=== PATIENT | female | born 1970 | race Caucasian/White ===

== ENCOUNTER 2019-05-29 06:47 | Day surgery (SDC) | payer OTHER, MEDICAID ==
[2019-05-28 12:26] LABS: CHLORIDE,CL 107 mmol/L (98-107); SODIUM,NA 143 mmol/L (136-145)
[~2019-05-29 06:47] MED LIST: Lactated Ringers 1,000 ML IV SCH; Sodium Chloride 0.9% 10 ML SDV IV PRN; Sodium Chloride 0.9% 10 ML Syringe FLUSH PRN; Sodium Chloride 0.9% 2.5 ML Syringe FLUSH PRN; ceFAZolin 2 GM in Premix Bag 1 BAG IV ONE
[2019-05-29] MEDS ORDERED: Lidocaine 2% 5 ML SDV ONE (08:23)
[2019-05-29] MEDS ORDERED: Propofol 200 MG/20 ML SDV ONE (08:23)
[2019-05-29] MEDS ORDERED: Midazolam 1 MG/ML 2 ML SDV ONE (08:23)
[2019-05-29] MEDS ORDERED: Glycopyrrolate 0.2 MG/ML SDV ONE (08:23)
[2019-05-29] MEDS ORDERED: Neostigmine Methylsulfate 1 MG/ML 5 ML Syringe ONE (08:23)
[2019-05-29] MEDS ORDERED: Ondansetron 4 MG/2 ML SDV ONE (08:23)
[2019-05-29] MEDS ORDERED: fentaNYL 250 MCG/5 ML SDV ONE (08:23)
[2019-05-29] MEDS ORDERED: Sodium Chloride 0.9% 20 ML ONE (08:25)
[2019-05-29] MEDS ORDERED: ceFAZolin 1 GM Vial ONE (08:25)
[2019-05-29] MEDS ORDERED: fentaNYL 100 MCG/2 ML SDV ONE ×2 (08:29→09:48)
[2019-05-29] MEDS ORDERED: Scopolamine 1.5 MG Transdermal Patch TRDERM PRN (08:56)
[2019-05-29] MEDS ORDERED: Scopolamine 1.5 MG Transdermal Patch ONE (08:58)
[2019-05-29] MEDS ORDERED: Rocuronium 100 MG/10 ML Syringe ONE (08:59)
--- NOTE | 2019-05-29 08:59 | PCM.PREANE ---
Preanesthetic Assessment - Anesthesia/Transfusion/Family Hx Anesthesia History: Prior Anesthesia Without Reaction Family History of Anesthesia Reaction: No Transfusion History: No Prior Transfusion(s) Intubation History: Unknown - Review of Systems General: No Symptoms Pulmonary: No Symptoms Cardiovascular: No Symptoms Gastrointestinal: No Symptoms Neurological: No Symptoms Other: Reports: None - Physical Assessment NPO Status Date: 05/28/19 NPO Status Time: 11:59 O2 Sat by Pulse Oximetry: 97 Respiratory Rate: 20 Vital Signs: Last Vital Signs Temp 36.3 C 05/29/19 07:30 Pulse 77 05/29/19 07:30 Resp 20 05/29/19 07:30 BP 125/61 05/29/19 07:30 Pulse Ox 97 05/29/19 07:30 Height: 5 ft 1 in Weight: 82.1 kg ASA Class: 2 Mental Status: Alert & Oriented x3 Airway Class: Mallampati = 2 Dentition: Reports: Normal Dentition, [place](s) (lower left- multiple) Thyro-Mental Finger Breadths: 3 Mouth Opening Finger Breadths: 2 ROM/Head Extension: Full Lungs: Clear to Auscultation, Normal Respiratory Effort Cardiovascular: Regular Rate, Regular Rhythm - Lab Values: Laboratory Last Values WBC 7.81 K/uL (4.0-11.0) 05/28/19 10:29 RBC 4.28 M/uL (4.30-5.90) L 05/28/19 10:29 Hgb 13.6 g/dL (12.0-16.0) 05/28/19 10:29 Hct 41.3 % (36.0-46.0) 05/28/19 10:29 MCV 96.5 fL (80.0-98.0) 05/28/19 10:29 MCH 31.8 pg (27.0-32.0) 05/28/19 10:29 MCHC 32.9 g/dL (31.0-37.0) 05/28/19 10:29 RDW Std Deviation 46.3 fl (28.0-62.0) 05/28/19 10:29 RDW Coeff of Gregorio 13 % (11.0-15.0) 05/28/19 10:29 Plt Count 265 K/uL (150-400) 05/28/19 10:29 MPV 10.00 fL (7.40-12.00) 05/28/19 10:29 Nucleated RBC % 0.0 /100WBC 05/28/19 10:29 Nucleated RBCs # 0 K/uL 05/28/19 10:29 Sodium 143 mmol/L (136-145) 05/28/19 10:23 Potassium 4.1 mmol/L (3.5-5.1) 05/28/19 10:23 Chloride 107 mmol/L (98-107) 05/28/19 10:23 Carbon Dioxide 25.8 mmol/L (21.0-32.0) 05/28/19 10:23 BUN 14 mg/dL (7.0-18.0) 05/28/19 10:23 Creatinine 0.6 mg/dL (0.6-1.0) 05/28/19 10:23 Est Cr Clr Drug Dosing 84.65 mL/min 05/28/19 10:23 Estimated GFR (MDRD) > 60.0 ml/min 05/28/19 10:23 Glucose 90 mg/dL (74-106) 05/28/19 10:23 Calcium 8.8 mg/dL (8.5-10.1) 05/28/19 10:23 HCG, Qual NEGATIVE (NEG) 05/28/19 10:29 Blood Type O POSITIVE 05/28/19 10:29 Antibody Screen NEGATIVE 05/28/19 10:29 - Allergies Allergies/Adverse Reactions: Allergies Allergy/AdvReac Type Severity Reaction Status Date / Time No Known Allergies Allergy Verified 05/22/19 08:20 - Blood Blood Available: No - Anesthesia Plan Pre-Op Medication Ordered: None - Acknowledgements Anesthesia Type Planned: General Anesthesia Pt an Appropriate Candidate for the Planned Anesthesia: Yes Alternatives and Risks of Anesthesia Discussed w Pt/Guardian: Yes Pt/Guardian Understands and Agrees with Anesthesia Plan: Yes PreAnesthesia Questionnaire HEENT History: Reports: Other (See Below) Other HEENT History: wears glasses Cardiovascular History: Reports: None Respiratory History: Reports: None Gastrointestinal History: Reports: Other (See Below) Other Gastrointestinal History: occasional heartburn Genitourinary History: Reports: None 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: Reports: , Other (See Below) Other OB/BYN History: cervical polyp Musculoskeletal History: Reports: None Neurological History: Reports: None Psychiatric History: Reports: Anxiety Endocrine/Metabolic History: Reports: Obesity/BMI 30+ Hematologic History: Reports: None Immunologic History: Reports: None Oncologic (Cancer) History: Reports: None Dermatologic History: Reports: Other (See Below) (left breast mass) - Past Surgical History Head Surgeries/Procedures: Reports: None HEENT Surgical History: Reports: None Cardiovascular Surgical History: Reports: None Respiratory Surgical History: Reports: None GI Surgical History: Reports: None Female Surgical History: Reports: Dilitation & Evacuation Endocrine Surgical History: Reports: None Neurological Surgical History: Reports: None Musculoskeletal Surgical History: Reports: None Oncologic Surgical History: Reports: None Dermatological Surgical History: Reports: None - SUBSTANCE USE Smoking Status *Q: Current Every Day Smoker (1-2 ppd) Tobacco Use Within Last Twelve Months: Cigarettes - HOME MEDS Home Medications: Home Meds . [No Known Home Meds] 05/22/19 [History] - CURRENT (IN HOUSE) MEDS Current Meds: Current Medications Lactated Ringer's (Ringers, Lactated) 1,000 mls @ 125 mls/hr IV ASDIRECTED FERMÍN Last Admin: 05/29/19 07:45 Dose: 125 mls/hr Sodium Chloride (Saline Flush) 10 ml FLUSH ASDIRECTED PRN PRN Reason: Keep Vein Open Sodium Chloride (Saline Flush) 2.5 ml FLUSH ASDIRECTED PRN PRN Reason: Keep Vein Open Sodium Chloride (Normal Saline) 10 ml IV ASDIRECTED PRN PRN Reason: IV Use Discontinued Medications Cefazolin Sodium (Ancef) Confirm Administered Dose 2 gm .ROUTE .STK-MED ONE Stop: 05/29/19 08:26 Fentanyl (Sublimaze) Confirm Administered Dose 250 mcg .ROUTE .STK-MED ONE Stop: 05/29/19 08:24 Fentanyl (Sublimaze) Confirm Administered Dose 100 mcg .ROUTE .STK-MED ONE Stop: 05/29/19 08:30 Glycopyrrolate (Robinul) Confirm Administered Dose 0.4 mg .ROUTE .STK-MED ONE Stop: 05/29/19 08:24 Cefazolin Sodium/Dextrose 2 gm (/ Premix) 50 mls @ 100 mls/hr IV ONETIME ONE Stop: 05/28/19 10:23 Sodium Chloride (Normal Saline) Confirm Administered Dose 20 mls @ as directed .ROUTE .STK-MED ONE Stop: 05/29/19 08:26 Lidocaine (Xylocaine-Mpf 2%) Confirm Administered Dose 5 ml .ROUTE .STK-MED ONE Stop: 05/29/19 08:24 Midazolam HCl (Versed 1 Mg/Ml) Confirm Administered Dose 2 mg .ROUTE .STK-MED ONE Stop: 05/29/19 08:24 Neostigmine Methylsulfate (Neostigmine) Confirm Administered Dose 5 mg .ROUTE .STK-MED ONE Stop: 05/29/19 08:24 Ondansetron HCl (Zofran) Confirm Administered Dose 4 mg .ROUTE .STK-MED ONE Stop: 05/29/19 08:24 Propofol (Diprivan 20 Ml) Confirm Administered Dose 200 mg .ROUTE .STK-MED ONE Stop: 05/29/19 08:24
[2019-05-29] MEDS ORDERED: Phenylephrine/Normal Saline 100 MCG/ML 10 ML Syringe ONE (09:30)
[2019-05-29] MEDS ORDERED: Furosemide 40 MG/4 ML VIAL ONE (09:41)
[2019-05-29] MEDS ORDERED: Fluorescein 5 ML Vial ONE (09:42)
[2019-05-29] MEDS ORDERED: HYDROmorphone 2 MG/ML Syringe ONE (09:44)
[2019-05-29] MEDS ORDERED: Atropine 0.1 MG/ML 10 ML Syringe IVPUSH PRN ×2 (09:59)
[2019-05-29] MEDS ORDERED: fentaNYL 100 MCG/2 ML SDV IVPUSH PRN (09:59)
[2019-05-29] MEDS ORDERED: 50% Dextrose in Water 50 ML Syringe IVPUSH PRN (09:59)
[2019-05-29] MEDS ORDERED: Naloxone 0.4 MG/ML Syringe IVPUSH PRN (09:59)
[2019-05-29] MEDS ORDERED: Albuterol 0.083% 2.5 MG/3 ML Neb Soln NEB PRN (09:59)
[2019-05-29] MEDS ORDERED: EPINEPHrine 1:10,000 1 MG/10 ML Syringe IVPUSH PRN (09:59)
[2019-05-29] MEDS ORDERED: Morphine 4 MG/ML Syringe IVPUSH PRN (10:16)
[2019-05-29] MEDS ORDERED: Promethazine 25 MG/ML SDV IM PRN (10:16)
[2019-05-29] MEDS ORDERED: Ondansetron 4 MG/2 ML SDV IVPUSH PRN (10:16)
[2019-05-29] MEDS ORDERED: Acetaminophen/oxyCODONE 325-5 MG Tab PO PRN ×2 (10:16)
[2019-05-29] MEDS ORDERED: Ketorolac 30 MG/ML SDV IVPUSH ONE (10:16)
[2019-05-29] MEDS ORDERED: Ketorolac 30 MG/ML SDV IVPUSH PRN (10:16)
--- NOTE | 2019-05-29 10:20 | PCM.OPNOTE ---
- General Post-Op/Procedure Note Date of Surgery/Procedure: 05/29/19 Operative Procedure(s): TVH,BSO,Cysto Pre Op Diagnosis: bleeding Fibroid Post-Op Diagnosis: Same Anesthesia Technique: General LMA Primary Surgeon: Madi Hudson EBL in mLs: 100 Complications: None Condition: Good
--- NOTE | 2019-05-29 11:35 | PCM.POSTAN ---
POST ANESTHESIA ASSESSMENT - MENTAL STATUS Mental Status: Alert, Oriented - RESPIRATORY Respiratory Status: Respiratory Rate WNL, Airway Patent, O2 Saturation Stable - CARDIOVASCULAR CV Status: Pulse Rate WNL, Blood Pressure Stable - GASTROINTESTINAL GI Status: No Symptoms - PAIN Pain Score: 5 - POST OP HYDRATION Hydration Status: Adequate & Stable - OBSERVATIONS Free Text/Narrative:: No anesthesia problems
--- NOTE | 2019-05-29 11:46 | OR ---
SURGEON: Madi Hudson MD DATE OF PROCEDURE: 05/29/2019 PREOPERATIVE DIAGNOSES: Postmenopausal bleeding, fibroid uterus. POSTOPERATIVE DIAGNOSES: Postmenopausal bleeding, fibroid uterus. OPERATION PERFORMED: Total vaginal hysterectomy, vaginal bilateral salpingo-oophorectomy, and cystoscopy. PRIMARY SURGEON: Madi Hudson MD. PARCEL POST CLERK: OR tech. ANESTHESIA: General endotracheal intubation, Evgeny Jasso and Dr. Jaimes. ESTIMATED BLOOD LOSS: 100 mL. COMPLICATIONS: None. FINDING: Uterus is about 8-week size. Ovary is atrophied. INDICATION FOR SURGERY: [place] referred to the admit note. PROCEDURE IN DETAIL: The patient was brought to the OR, properly identified, and after adequate level of anesthesia, the patient was placed in lithotomy position. Exam under anesthesia was done and it was deemed that the case could be done safely vaginally, so we proceeded with the vaginal route. The patient was prepped and draped in sterile fashion as usual. A short weighted speculum was placed in the vagina. Straight catheter was used to empty the bladder. A single-tooth tenaculum applied to the cervix. Using electrocautery, a circular incision in the vaginal mucosa was done around the cervix and the posterior cul-de-sac was entered posteriorly. The peritoneum and the cul-de-sac posteriorly tagged with 2-0 Vicryl and held for further identification. The short weighted speculum was placed with extended long weighted speculum. The uterosacral ligament was identified from both sides, clamped with a curved Zeppelin, transected, suture ligated with 2-0 Vicryl pop-off, held for further identification on both side. The same thing done with the cardinal ligament and then the cervical vesicle space entered, retracting the bladder completely away from the operative field and anterior cul-de-sac was entered. The broad ligament was clamped with a curved zeppelin at this time, transected, and suture ligated with 2-0 Vicryl pop- off. The round ligament in the same manner was done, and then, the uterus delivered posteriorly, and the superior pedicle was taken with 90 degree zeppelin. The tubes and ovary on both sides included with the specimen, and the superior pedicles tied first with Endoloops and then free tie. Inspection of the operative field shows no oozing, no bleeding. We proceeded to close the vaginal cuff with 2-0 Vicryl interrupted [id number] suture, uterosacral ligament and cardinal ligament on both sides incorporated into the vaginal cuff closure for added vaginal support. While we were doing that, we asked Anesthesia personnel to give the patient fluorescein and cystoscopy was performed. The bladder was intact. Both ureteric orifices seen with the dye coming from both of them; thus, the patency of both ureters verified. Satisfied with these findings, the procedure ended. The instrument and sponge count was correct. The patient tolerated the procedure well, went to recovery room in stable general condition. DANIEL / SELENE /[id number]
--- NOTE | 2019-05-29 17:52 | PCM48HPAN ---
Post Anesthesia Note - EVALUATION WITHIN 48HRS OF ANESTHETIC Vital Signs in Normal Range: Yes Patient Participated in Evaluation: Yes Respiratory Function Stable: Yes Airway Patent: Yes Cardiovascular Function Stable: Yes Hydration Status Stable: Yes Pain Control Satisfactory: Yes Nausea and Vomiting Control Satisfactory: Yes Mental Status Recovered: Yes Pulse Rate: 76 SaO2: 95 Resp Rate: 17 Blood Pressure: 127/60
[2019-05-29] MEDS: Acetaminophen 325 MG Tab PO PRN (20:38)
[2019-05-30] MEDS: Acetaminophen 325 MG Tab PO PRN ×2 (00:21→09:06)
[2019-05-30 06:03] LABS: CHLORIDE,CL 107 mmol/L (98-107); SODIUM,NA 141 mmol/L (136-145)
--- NOTE | 2019-05-30 09:16 | PCM.SURGPN ---
- General Info Date of Service: 05/30/19 POD#: 1 Functional Status: Reports: Pain Controlled - Review of Systems General: Reports: No Symptoms HEENT: Reports: No Symptoms Pulmonary: Reports: No Symptoms Cardiovascular: Reports: No Symptoms Gastrointestinal: Reports: No Symptoms Genitourinary: Reports: No Symptoms Musculoskeletal: Reports: No Symptoms Skin: Reports: No Symptoms Neurological: Reports: No Symptoms Psychiatric: Reports: No Symptoms - Patient Data Vitals - Most Recent: Last Vital Signs Temp 36.5 C 05/30/19 07:41 Pulse 96 05/30/19 07:41 Resp 18 05/30/19 07:41 BP 131/60 05/30/19 07:41 Pulse Ox 94 L 05/30/19 07:41 Weight - Most Recent: 82.1 kg I&O - Last 24 Hours: Intake & Output 05/29/19 05/30/19 05/30/19 22:59 06:59 14:59 Intake Total 579 850 Output Total 650 1100 Balance -71 -250 Lab Results Last 24 Hrs: Laboratory Results - last 24 hr 05/30/19 05/30/19 Range/Units 05:30 05:30 WBC 12.37 H (4.0-11.0) K/uL RBC 3.71 L (4.30-5.90) M/uL Hgb 11.8 L (12.0-16.0) g/dL Hct 35.9 L (36.0-46.0) % MCV 96.8 (80.0-98.0) fL MCH 31.8 (27.0-32.0) pg MCHC 32.9 (31.0-37.0) g/dL RDW Std Deviation 47.3 (28.0-62.0) fl RDW Coeff of Gregorio 13 (11.0-15.0) % Plt Count 239 (150-400) K/uL MPV 9.70 (7.40-12.00) fL Neut % (Auto) 79.9 (48.0-80.0) % Lymph % (Auto) 11.6 L (16.0-40.0) % Dunn % (Auto) 7.4 (0.0-15.0) % Eos % (Auto) 0.9 (0.0-7.0) % Baso % (Auto) 0.2 (0.0-1.5) % Neut # (Auto) 9.9 H (1.4-5.7) K/uL Lymph # (Auto) 1.4 (0.6-2.4) K/uL Dunn # (Auto) 0.9 H (0.0-0.8) K/uL Eos # (Auto) 0.1 (0.0-0.7) K/uL Baso # (Auto) 0.0 (0.0-0.1) K/uL Nucleated RBC % 0.0 /100WBC Nucleated RBCs # 0 K/uL Sodium 141 (136-145) mmol/L Potassium 3.8 (3.5-5.1) mmol/L Chloride 107 (98-107) mmol/L Carbon Dioxide 27.4 (21.0-32.0) mmol/L BUN 12 (7.0-18.0) mg/dL Creatinine 0.9 (0.6-1.0) mg/dL Est Cr Clr Drug Dosing 56.43 mL/min Estimated GFR (MDRD) > 60.0 ml/min Glucose 114 H (74-106) mg/dL Calcium 8.3 L (8.5-10.1) mg/dL Med Orders - Current: Current Medications Acetaminophen (Tylenol) 650 mg PO Q4H PRN PRN Reason: Pain Last Admin: 05/30/19 09:06 Dose: 650 mg Ketorolac Tromethamine (Toradol) 30 mg IVPUSH Q6H PRN PRN Reason: Pain (severe 7-10) Stop: 06/03/19 10:16 Morphine Sulfate (Morphine) 4 mg IVPUSH Q2H PRN PRN Reason: Pain (severe 7-10) Ondansetron HCl (Zofran) 4 mg IVPUSH Q6H PRN PRN Reason: Nausea/Vomiting Oxycodone/Acetaminophen (Percocet 325-5 Mg) 1 tab PO Q4H PRN PRN Reason: Pain (moderate 4-6) Oxycodone/Acetaminophen (Percocet 325-5 Mg) 2 tab PO Q4H PRN PRN Reason: Pain (moderate 4-6) Promethazine HCl (Phenergan) 25 mg IM Q6H PRN PRN Reason: Nausea/Vomiting Scopolamine (Transderm-Scop) 1.5 mg TRDERM Q72H PRN PRN Reason: Nausea Last Admin: 05/29/19 09:01 Dose: 1.5 mg Sodium Chloride (Saline Flush) 10 ml FLUSH ASDIRECTED PRN PRN Reason: Keep Vein Open Sodium Chloride (Saline Flush) 2.5 ml FLUSH ASDIRECTED PRN PRN Reason: Keep Vein Open Sodium Chloride (Normal Saline) 10 ml IV ASDIRECTED PRN PRN Reason: IV Use Discontinued Medications Albuterol (Proventil Neb Soln) 2.5 mg NEB ONETIME PRN PRN Reason: Wheezing Atropine Sulfate (Atropine 0.1 Mg/Ml) 0.5 mg IVPUSH ASDIRECTED PRN PRN Reason: Hypo-perfusion Atropine Sulfate (Atropine 0.1 Mg/Ml) 1 mg IVPUSH ASDIRECTED PRN PRN Reason: Hypo-Perfusion Cefazolin Sodium (Ancef) Confirm Administered Dose 2 gm .ROUTE .STK-MED ONE Stop: 05/29/19 08:26 Dextrose/Water (Dextrose 50% In Water) 50 ml IVPUSH ASDIRECTED PRN PRN Reason: Hypoglycemia Epinephrine HCl (Epinephrine 1:10,000) 1 mg IVPUSH ASDIRECTED PRN PRN Reason: ACLS Guidelines Fentanyl (Sublimaze) Confirm Administered Dose 250 mcg .ROUTE .STK-MED ONE Stop: 05/29/19 08:24 Fentanyl (Sublimaze) Confirm Administered Dose 100 mcg .ROUTE .STK-MED ONE Stop: 05/29/19 08:30 Fentanyl (Sublimaze) Confirm Administered Dose 100 mcg .ROUTE .STK-MED ONE Stop: 05/29/19 09:49 Fentanyl (Sublimaze) 50 - 100 mcg IVPUSH Q5M PRN PRN Reason: Pain Last Admin: 05/29/19 11:06 Dose: 50 mcg Fluorescein Sodium (Ak-Fluor) Confirm Administered Dose 5 ml .ROUTE .STK-MED ONE Stop: 05/29/19 09:43 Furosemide (Lasix) Confirm Administered Dose 40 mg .ROUTE .STK-MED ONE Stop: 05/29/19 09:42 Glycopyrrolate (Robinul) Confirm Administered Dose 0.4 mg .ROUTE .STK-MED ONE Stop: 05/29/19 08:24 Hydromorphone HCl (Dilaudid) Confirm Administered Dose 2 mg .ROUTE .STK-MED ONE Stop: 05/29/19 09:45 Cefazolin Sodium/Dextrose 2 gm (/ Premix) 50 mls @ 100 mls/hr IV ONETIME ONE Stop: 05/28/19 10:23 Last Admin: 05/29/19 12:43 Dose: Not Given Lactated Ringer's (Ringers, Lactated) 1,000 mls @ 125 mls/hr IV ASDIRECTED FERMÍN Last Admin: 05/29/19 07:45 Dose: 125 mls/hr Sodium Chloride (Normal Saline) Confirm Administered Dose 20 mls @ as directed .ROUTE .STK-MED ONE Stop: 05/29/19 08:26 Ketorolac Tromethamine (Toradol) 30 mg IVPUSH ONETIME ONE Stop: 05/29/19 10:17 Last Admin: 05/29/19 11:03 Dose: 30 mg Lidocaine (Xylocaine-Mpf 2%) Confirm Administered Dose 5 ml .ROUTE .STK-MED ONE Stop: 05/29/19 08:24 Midazolam HCl (Versed 1 Mg/Ml) Confirm Administered Dose 2 mg .ROUTE .STK-MED ONE Stop: 05/29/19 08:24 Naloxone HCl (Narcan) 0.1 mg IVPUSH ASDIRECTED PRN PRN Reason: Respiratory Depression Neostigmine Methylsulfate (Neostigmine) Confirm Administered Dose 5 mg .ROUTE .STK-MED ONE Stop: 05/29/19 08:24 Ondansetron HCl (Zofran) Confirm Administered Dose 4 mg .ROUTE .STK-MED ONE Stop: 05/29/19 08:24 Phenylephrine HCl (Phenylephrine In Ns 100 Mcg/Ml) Confirm Administered Dose 1 mg .ROUTE .STK-MED ONE Stop: 05/29/19 09:31 Propofol (Diprivan 20 Ml) Confirm Administered Dose 200 mg .ROUTE .STK-MED ONE Stop: 05/29/19 08:24 Rocuronium Delaplaine (Zemuron) Confirm Administered Dose 100 mg .ROUTE .STK-MED ONE Stop: 05/29/19 09:00 Scopolamine (Transderm-Scop) Confirm Administered Dose 1.5 mg .ROUTE .STK-MED ONE Stop: 05/29/19 08:59 Last Admin: 05/29/19 12:43 Dose: Not Given - Exam Wound/Incisions: Healing Well General: Alert, Oriented HEENT: Pupils Equal Neck: Supple Lungs: Clear to Auscultation, Normal Respiratory Effort Cardiovascular: Regular Rate, Regular Rhythm GI/Abdominal Exam: Normal Bowel Sounds, Soft, Non-Tender, No Organomegaly, No Distention, No Abnormal Bruit, No Mass, Pelvis Stable Extremities: Normal Inspection, Normal Range of Motion, Non-Tender, No Pedal Edema, Normal Capillary Refill Skin: Warm, Dry, Intact Neurological: No New Focal Deficit Psy/Mental Status: Alert, Normal Affect, Normal Mood - Problem List Review Problem List Initiated/Reviewed/Updated: Yes - My Orders Last 24 Hours: Active Orders 24 hr Category Date Time Status Patient Status [ADT] Routine ADT 05/29/19 10:16 Active Notify Provider Vital Signs [RC] ASDIRECTED Care 05/29/19 10:16 Active Oxygen Therapy [RC] ASDIRECTED Care 05/29/19 10:16 Active RT Incentive Spirometry [RC] Q2HWA Care 05/29/19 10:16 Active Up With Assistance [RC] PER UNIT ROUTINE Care 05/29/19 10:16 Active Up ad Cookie [RC] PER UNIT ROUTINE Care 05/29/19 10:16 Active Regular Diet [DIET] Diet 05/29/19 Lunch Active Acetaminophen [Tylenol] Med 05/29/19 20:15 Active 650 mg PO Q4H PRN Acetaminophen/oxyCODONE [Percocet 325-5 MG] Med 05/29/19 10:16 Active 1 tab PO Q4H PRN Acetaminophen/oxyCODONE [Percocet 325-5 MG] Med 05/29/19 10:16 Active 2 tab PO Q4H PRN Ketorolac [Toradol] Med 05/29/19 10:16 Active 30 mg IVPUSH Q6H PRN Morphine Med 05/29/19 10:16 Active 4 mg IVPUSH Q2H PRN Ondansetron [Zofran] Med 05/29/19 10:16 Active 4 mg IVPUSH Q6H PRN Promethazine [Phenergan] Med 05/29/19 10:16 Active 25 mg IM Q6H PRN Scopolamine [Transderm-Scop] Med 05/29/19 08:56 Active 1.5 mg TRDERM Q72H PRN Peripheral IV Discontinue [OM.PC] Routine Oth 05/29/19 10:16 Ordered Sequential Compression Device [OM.PC] Per Unit Routine Oth 05/29/19 10:16 Ordered Resuscitation Status Routine Resus Stat 05/29/19 10:16 Ordered Medication Orders Acetaminophen (Tylenol) 650 mg PO Q4H PRN PRN Reason: Pain Last Admin: 05/30/19 09:06 Dose: 650 mg Admin: 05/30/19 00:21 Dose: 650 mg Admin: 05/29/19 20:38 Dose: 650 mg Ketorolac Tromethamine (Toradol) 30 mg IVPUSH Q6H PRN PRN Reason: Pain (severe 7-10) Stop: 06/03/19 10:16 Morphine Sulfate (Morphine) 4 mg IVPUSH Q2H PRN PRN Reason: Pain (severe 7-10) Ondansetron HCl (Zofran) 4 mg IVPUSH Q6H PRN PRN Reason: Nausea/Vomiting Oxycodone/Acetaminophen (Percocet 325-5 Mg) 1 tab PO Q4H PRN PRN Reason: Pain (moderate 4-6) Oxycodone/Acetaminophen (Percocet 325-5 Mg) 2 tab PO Q4H PRN PRN Reason: Pain (moderate 4-6) Promethazine HCl (Phenergan) 25 mg IM Q6H PRN PRN Reason: Nausea/Vomiting Scopolamine (Transderm-Scop) 1.5 mg TRDERM Q72H PRN PRN Reason: Nausea Last Admin: 05/29/19 09:01 Dose: 1.5 mg Sodium Chloride (Saline Flush) 10 ml FLUSH ASDIRECTED PRN PRN Reason: Keep Vein Open Sodium Chloride (Saline Flush) 2.5 ml FLUSH ASDIRECTED PRN PRN Reason: Keep Vein Open Sodium Chloride (Normal Saline) 10 ml IV ASDIRECTED PRN PRN Reason: IV Use - Assessment Assessment (Free Text/Narrative):: Status post vaginal hysterectomy with bilateral salpingo-oophorectomy and cystoscopy postoperative day #1 the patient afebrile no vaginal bleeding on regular diet and voiding without any problem - Plan Plan (Free Text/Narrative):: Planning to send her home today the postvasectomy instruction is given to the patient she was given a prescription of [place] 5:30 tablet to take every 4 hours when necessary for postoperative pain she is already have an appointment to come see me next week
== END 2019-05-30 09:55 | disposition home or self-care (01) ==
LOC: MW.SDS 06:47 → MW.MS 10:16 → MW.SDS 05-30 09:55
PROVIDERS: ATTEND Obstetrics & Gynecology
DX: D26.1 Other benign neoplasm of corpus uteri (principal); N95.0 Postmenopausal bleeding; N83.319 Acquired atrophy of ovary, unspecified side; F17.210 Nicotine dependence, cigarettes, uncomplicated; E66.9 Obesity, unspecified; Z68.34 Body mass index [BMI] 34.0-34.9, adult
CPT/HCPCS: 36415; 58262; 80048; 84703; 85025; 85027; 86850; 86900; 86901; 88309; A9270; J0690; J1170; J1885; J1940; J2001; J2250; J2370; J2405; J2704; J3010; J3490; J7120

== ENCOUNTER 2020-01-15 09:09 | Day surgery (SDC) | payer MEDICAID ==
[~2020-01-15 09:09] MED LIST changes: -ceFAZolin 2 GM in Premix Bag 1 BAG IV ONE
--- NOTE | 2020-01-15 10:14 | PCM.PREANE ---
Preanesthetic Assessment - Anesthesia/Transfusion/Family Hx Anesthesia History: Prior Anesthesia Without Reaction Family History of Anesthesia Reaction: No Transfusion History: No Prior Transfusion(s) Intubation History: Unknown - Review of Systems General: No Symptoms Pulmonary: No Symptoms Cardiovascular: No Symptoms Gastrointestinal: No Symptoms Neurological: No Symptoms Other: Reports: Anxiety - Physical Assessment NPO Status Date: 01/14/20 NPO Status Time: 23:30 Vital Signs: Last Vital Signs Temp 98.1 F 01/15/20 10:00 Pulse 74 01/15/20 10:00 Resp 18 01/15/20 10:00 BP 91/54 L 01/15/20 10:00 Pulse Ox 96 01/15/20 10:00 Height: 5 ft 1 in Weight: 85.729 kg ASA Class: 2 Mental Status: Alert & Oriented x3 Airway Class: Mallampati = 2 Dentition: Reports: Normal Dentition ROM/Head Extension: Full Lungs: Clear to Auscultation, Normal Respiratory Effort Cardiovascular: Regular Rate, Regular Rhythm - Allergies Allergies/Adverse Reactions: Allergies Allergy/AdvReac Type Severity Reaction Status Date / Time No Known Allergies Allergy Verified 01/15/20 09:58 - Blood Blood Available: No - Anesthesia Plan Pre-Op Medication Ordered: None - Acknowledgements Anesthesia Type Planned: General Anesthesia Pt an Appropriate Candidate for the Planned Anesthesia: Yes Alternatives and Risks of Anesthesia Discussed w Pt/Guardian: Yes Pt/Guardian Understands and Agrees with Anesthesia Plan: Yes Additional Comments: PMH: dysphagia, smoker, anxiety, smoker, s/p hyst PLAN: tiva PreAnesthesia Questionnaire HEENT History: Reports: Other (See Below) Other HEENT History: reading glasses, Cardiovascular History: Reports: None Respiratory History: Reports: None Gastrointestinal History: Reports: GERD, Other (See Below) Other Gastrointestinal History: dysphagia, epigastric pain Genitourinary History: Reports: None 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: , Other (See Below) Other OB/BYN History: cervical polyp Musculoskeletal History: Reports: None Neurological History: Reports: Migraines Psychiatric History: Reports: Anxiety, Panic Attack Endocrine/Metabolic History: Reports: Obesity/BMI 30+ Hematologic History: Reports: None Immunologic History: Reports: None Oncologic (Cancer) History: Reports: None Dermatologic History: Reports: None - Past Surgical History Head Surgeries/Procedures: Reports: None HEENT Surgical History: Reports: None Cardiovascular Surgical History: Reports: None Respiratory Surgical History: Reports: None GI Surgical History: Reports: None Female Surgical History: Reports: Dilitation & Evacuation, Hysterectomy, Salpingo-Oophorectomy Endocrine Surgical History: Reports: None Neurological Surgical History: Reports: None Musculoskeletal Surgical History: Reports: None Oncologic Surgical History: Reports: None Dermatological Surgical History: Reports: None - SUBSTANCE USE Smoking Status *Q: Current Every Day Smoker Tobacco Use Within Last Twelve Months: Cigarettes - HOME MEDS Home Medications: Home Meds LORazepam [Lorazepam] 0.5 mg PO DAILY PRN 12/19/19 [History] Pantoprazole Sodium 40 mg PO DAILY 12/19/19 [History] Acetaminophen [Tylenol Extra Strength] 2 tab PO ASDIRECTED PRN 01/13/20 [History ] - CURRENT (IN HOUSE) MEDS Current Meds: Current Medications Lactated Ringer's (Ringers, Lactated) 1,000 mls @ 125 mls/hr IV ASDIRECTED FERMÍN Last Admin: 01/15/20 09:57 Dose: 125 mls/hr Sodium Chloride (Saline Flush) 10 ml FLUSH ASDIRECTED PRN PRN Reason: Keep Vein Open Sodium Chloride (Saline Flush) 2.5 ml FLUSH ASDIRECTED PRN PRN Reason: Keep Vein Open Sodium Chloride (Saline Flush) 10 ml FLUSH ASDIRECTED PRN PRN Reason: Keep Vein Open Sodium Chloride (Saline Flush) 2.5 ml FLUSH ASDIRECTED PRN PRN Reason: Keep Vein Open Sodium Chloride (Normal Saline) 10 ml IV ASDIRECTED PRN PRN Reason: IV Use
[2020-01-15] MEDS ORDERED: Midazolam 1 MG/ML 2 ML SDV ONE (11:31)
[2020-01-15] MEDS ORDERED: fentaNYL 100 MCG/2 ML SDV ONE (11:31)
[2020-01-15] MEDS ORDERED: Propofol 200 MG/20 ML SDV ONE (11:31)
--- NOTE | 2020-01-15 12:44 | PCM.OPNOTE ---
- General Post-Op/Procedure Note Date of Surgery/Procedure: 01/15/20 Operative Procedure(s): Diagnostic EGD Findings: Healing ulcer just above GE junction Pre Op Diagnosis: GERD Post-Op Diagnosis: same Anesthesia Technique: MAC Primary Surgeon: Leilani Bermudez Condition: Good Free Text/Narrative:: Intake & Output 01/14/20 01/15/20 01/15/20 22:59 06:59 14:59 Intake Total 800 Balance 800
--- NOTE | 2020-01-15 12:52 | PCM.POSTAN ---
POST ANESTHESIA ASSESSMENT - MENTAL STATUS Mental Status: Alert, Oriented - VITAL SIGNS Vital Signs: Last Vital Signs Temp 98.1 F 01/15/20 10:00 Pulse 77 01/15/20 12:44 Resp 20 01/15/20 12:44 BP 103/65 01/15/20 12:44 Pulse Ox 94 L 01/15/20 12:44 - RESPIRATORY Respiratory Status: Respiratory Rate WNL, Airway Patent, O2 Saturation Stable - CARDIOVASCULAR CV Status: Pulse Rate WNL, Blood Pressure Stable - GASTROINTESTINAL GI Status: No Symptoms - PAIN Pain Score: 0 - POST OP HYDRATION Hydration Status: Adequate & Stable
--- NOTE | 2020-01-15 13:23 | PCM48HPAN ---
Post Anesthesia Note - EVALUATION WITHIN 48HRS OF ANESTHETIC Vital Signs in Normal Range: Yes Patient Participated in Evaluation: Yes Respiratory Function Stable: Yes Airway Patent: Yes Cardiovascular Function Stable: Yes Hydration Status Stable: Yes Pain Control Satisfactory: Yes Nausea and Vomiting Control Satisfactory: Yes Mental Status Recovered: Yes Vital Signs: Last Vital Signs Temp 98.1 F 01/15/20 10:00 Pulse 77 01/15/20 12:44 Resp 20 01/15/20 12:44 BP 103/65 01/15/20 12:44 Pulse Ox 94 L 01/15/20 12:44
--- NOTE | 2020-01-16 16:10 | OR ---
SURGEON: LEILANI BERMUDEZ MD DATE OF PROCEDURE: 01/15/2020 PREOPERATIVE DIAGNOSES: Dysphagia, reflux. POSTOPERATIVE DIAGNOSES: Dysphagia, reflux. PROCEDURE PERFORMED: Diagnostic esophagogastroduodenoscopy with biopsy. PRIMARY SURGEON: Leilani Bermudez MD. ANESTHESIA: MAC. INSTRUMENT USED: Olympus endoscope. EXTENT OF EXAM: To the second portion of duodenum. PREPARATION: Good. LIMITATIONS: None. INDICATIONS FOR EXAMINATION: The patient is a 49-year-old female who presented to my clinic with complaints of dysphagia. She underwent an esophagram that showed some esophageal dysmotility as well as reflux. The decision was made to proceed with a diagnostic EGD. The patient and I discussed the procedure; expected perioperative course; and risks including bleeding, infection, or damage to surrounding structures including perforation. The patient verbalized understanding and wishes to proceed. PROCEDURE IN DETAIL: The patient was brought into the endoscopy suite and placed in a beach chair position. A time-out was completed verifying the patient's name, age, date of , allergies, and procedure to be performed. A bite block was placed in the patient's mouth. Monitored anesthesia care was induced and continuous oxygen was provided via nasal cannula throughout the procedure. After adequate sedation was achieved, a well-lubricated endoscope was placed in the patient's mouth and advanced under direct visualization to the level of the second portion of duodenum. This appeared normal and a photograph was taken. The scope was then fully withdrawn while examining the color, texture, anatomy, and integrity of the mucosa of the upper GI tract. The duodenal mucosa all appeared normal. The scope was brought into the stomach and a photograph was taken of the GE junction as well as the pylorus. Both appeared anatomically normal. The gastric mucosa appeared free of gross ulceration or inflammation. Biopsies were taken of the gastric antrum, body, and fundus and sent to pathology for histologic review and H. pylori testing. The scope was then brought into the distal esophagus. A photograph was taken of the Z-line. Just above the Z-line, there appeared to be an area of a small punctate healing ulcer. A biopsy around this area was taken using cold biopsy forceps and sent to pathology, labeled as esophageal biopsy. The remainder of the esophagus appeared normal. The scope was removed and this procedure was terminated. The patient tolerated it well and was transferred to the PACU in stable condition. ENDOSCOPIC DIAGNOSES: Dysphagia, reflux. RECOMMENDATIONS: Follow up in clinic in 2 weeks. The patient should continue to take her PPI therapy in the meantime. ABIOLA / SELENE /[id number]
== END 2020-01-15 13:15 | disposition home or self-care (01) ==
LOC: MW.SDS 09:09
PROVIDERS: ATTEND Surgery
DX: K21.0 Gastro-esophageal reflux disease with esophagitis (principal); K29.50 Unspecified chronic gastritis without bleeding; K22.4 Dyskinesia of esophagus; F41.0 Panic disorder [episodic paroxysmal anxiety]; F32.9 Major depressive disorder, single episode, unspecified; F17.210 Nicotine dependence, cigarettes, uncomplicated; E66.9 Obesity, unspecified; Z68.35 Body mass index [BMI] 35.0-35.9, adult; Z79.899 Other long term (current) drug therapy
CPT/HCPCS: 43239; J2250; J2704; J3010; J7120